=== PATIENT | female | born 1950 ===

== ENCOUNTER 2018-04-12 21:02 | Inpatient (IN) | payer BC, MEDICARE ==
[2018-04-12 21:37] LABS: BASO # 0.03 K/mm3 (0.0-2.0); BASO % 0.4 % (0.0-3.0); EOS # 0.1 (0.0-0.7); EOS % 0.9 % (1.5-5.0); GRAN # 4.38 (1.4-6.5); GRAN % 55.5 % (50.0-68.0); HEMOGLOBIN 12.7 g/dL (12.0-16.0); LYMPH % 37.8 % (22.0-35.0); MEAN CELL VOLUME 89.4 fl (80.0-105.0); MEAN CORPUSCULAR HEMOGLOBIN 30.6 pg (25.0-35.0); MEAN CORPUSCULAR HGB CONC 34.2 g/dl (31.0-37.0); MEAN PLATELET VOLUME 10.7 fl (7.0-11.0); MONO # 0.4 (0.1-0.6); MONO % 5.4 % (1.0-6.0); RBC 4.15 10^6/uL (3.5-6.1); RED CELL DISTRIBUTION WIDTH 12.3 % (11.5-14.5); WHITE BLOOD COUNT 7.9 10^3/ul (4.5-11.0)
[2018-04-12 21:51] LABS: PH,URINE 6.5 (4.7-8.0); URINE BILIRUBIN NEGATIVE (NEGATIVE); URINE BLOOD TRACE-INTACT (NEGATIVE); URINE GLUCOSE (UA) 500 mg/dL (NEGATIVE); URINE LEUKOCYTE ESTERASE SMALL Leu/uL (NEGATIVE); URINE PROTEIN NEGATIVE mg/dL (<30 mg/dL); URINE UROBILINOGEN 0.2 E.U./dL (<1 E.U./dL)
[2018-04-12 21:55] LABS: URINE COLOR YELLOW (YELLOW)
[2018-04-12 21:56] LABS: URINE APPEARANCE CLEAR (CLEAR)
[2018-04-12 22:01] LABS: URINE EPITHELIAL CELLS 0 - 2 /hpf (0-5); URINE RBC 0 - 2 /hpf (0-2); URINE WBC 0 - 2 /hpf (0-6)
[2018-04-12 22:03] LABS: TROPONIN I < 0.01 ng/mL
[2018-04-12] MEDS ORDERED: Sodium Chloride 0.9% 1,000 ML IV STA ×2 (22:07→23:22)
[2018-04-12 22:18] LABS: D DIMER < 200 ng/mL (0-243); INR 0.98 (0.93-1.08); PARTIAL THROMBOPLASTIN TIME 27.5 Seconds (25.1-36.5); PROTHROMBIN TIME 11.2 SECONDS (9.4-12.5)
[2018-04-12 22:20] LABS: ALB/GLOB RATIO 1.3 (1.1-1.8); ALBUMIN 4.7 g/dL (3.0-4.8); ALT/SGPT 24 U/L (7-56); AST/SGOT 28 U/L (14-36); BLOOD UREA NITROGEN 15 mg/dL (7-21); CALCIUM 9.4 mg/dL (8.4-10.5); GFR AFRICAN-AMERICAN > 60; GFR NON-AFRICAN AMERICAN > 60
--- NOTE | 2018-04-13 01:12 | ED PDOC ---
Arrival/HPI - General Chief Complaint: Palpitations Time Seen by Provider: 04/12/18 21:26 Historian: Patient - History of Present Illness Narrative History of Present Illness (Text): 04/12/18 21:25 67 year old female, whose past medical history includes hypertension, who presents to the Emergency department complaining of generalized fatigue and sudden onset of anterior chest pain with palpitations tonight. Patient states pain radiates across her chest to the right arm and describes pain as a pressure sensation with the feeling of palpitations. Patient states pain is associated with some nausea. No medications were taken at home. Patient denies any fever, chills, back pain, abdominal pain, recent trauma, recent travel, brandy pain, or any other complaints. Symptom Onset: Sudden Symptom Course: Unchanged Activities at Onset: Light Context: Home Past Medical History - Provider Review Nursing Documentation Reviewed: Yes - Travel History Have you recently traveled outside [place] w/in the past 3 mons?: No - Cardiac Hx Hypertension: Yes - Psychiatric Hx Substance Use: No - Anesthesia Hx Anesthesia: No Hx Anesthesia Reactions: No Hx Malignant Hyperthermia: No Family/Social History - Physician Review Nursing Documentation Reviewed: Yes Family/Social History: Diabetes (mother with DM), CAD/DC (brother; at age 40). denies: Aortic/Thoracic Disection Smoking Status: Never Smoked Hx Alcohol Use: No Hx Substance Use: No Allergies/Home Meds Allergies/Adverse Reactions: Allergies No Known Allergies Allergy (Unverified 08/02/13 14:58) Home Medications: Home Meds Medication Instructions Recorded Confirmed Amlodipine Besylate/Benazepril 1 cap PO DAILY 04/12/18 04/12/18 [Amlodipine-Benazepril 5-10 mg] Review of Systems - Physician Review All systems were reviewed & negative as marked: Yes - Review of Systems Constitutional: Normal. absent: Fevers Respiratory: Normal. absent: SOB, Cough Cardiovascular: Chest Pain, Palpitations Gastrointestinal: Nausea. absent: Abdominal Pain, Vomiting Genitourinary Female: Normal. absent: Dysuria, Frequency, Hematuria, Urine Output Changes Musculoskeletal: Normal. absent: Back Pain Neurological: Normal. absent: Headache, Dizziness Physical Exam Vital Signs Reviewed: Yes Vital Signs Temp Pulse Resp BP Pulse Ox 04/12/18 23:52 89 14 117/70 99 04/12/18 22:28 103 H 23 139/83 97 04/12/18 21:17 98.5 F 117 H 18 137/89 99 Temperature: Afebrile Blood Pressure: Normal Pulse: Tachycardic Respiratory Rate: Normal Appearance: Positive for: Non-Toxic Pain Distress: None Mental Status: Positive for: Alert and Oriented X 3 Finger Stick Blood Glucose: 282 - Systems Exam Head: Present: Atraumatic, Normocephalic Mouth: Present: Moist Mucous Membranes Neck: Present: Normal Range of Motion Respiratory/Chest: Present: Clear to Auscultation, Good Air Exchange. No: Respiratory Distress, Accessory Muscle Use Cardiovascular: Present: Normal S1, S2, Tachycardic. No: Murmurs, Muffled Abdomen: No: Tenderness, Distention, Peritoneal Signs, Rebound, Guarding Back: Present: Normal Inspection. No: CVA Tenderness Upper Extremity: Present: Normal Inspection. No: Cyanosis, Edema Lower Extremity: Present: Normal Inspection. No: Edema, CALF TENDERNESS Neurological: Present: GCS=15, Speech Normal Skin: Present: Warm, Dry, Normal Color. No: Rashes Psychiatric: Present: Alert, Oriented x 3 Medical Decision Making ED Course and Treatment: 04/12/18 21:25 Impression: 67 year old female presents for chest pain, palpitations, and nausea. Plan: -- EKG: Sinus tachycardia at 117 bpm normal axis no ST elevations -- Chest X-ray: No infiltrate or effusion -- CBC: wnl --CMP: glucose; 318 --trop; wnl --D-dimer negative -- Urinalysis, urine cultures -- IV fluids -- Aspirin -- Reassess and disposition Progress Notes: Patient given 2 L of normal saline IV bolus. Patient feeling better. Heart rate has improved to 98 bpm I discussed the results in depth with the patient. Aspirin 325 mg given by mouth Case discussed with Dr. Rodriguez, who is aware and agrees with plan. She has requested a low dose of regular insulin sliding scale Impression: Chest pain, new onset diabetes Admitted observational status to telemetry Reassessment Condition: Re-examined, Improved - Lab Interpretations Lab Results: 04/12/18 21:15 04/12/18 21:15 Lab Results 04/13/18 00:27: POC Glucose (mg/dL) 282 H 04/12/18 22:01: PT 11.2, INR 0.98, APTT 27.5, D-Dimer, Quantitative < 200 04/12/18 21:40: Urine Color Yellow, Urine Appearance Clear, Urine pH 6.5, Ur Specific Knobel <= 1.005, Urine Protein Negative, Urine Glucose (UA) 500 H, Urine Ketones Negative, Urine Blood Trace-intact H, Urine Nitrate Negative, Urine Bilirubin Negative, Urine Urobilinogen 0.2, Ur Leukocyte Esterase Small H , Urine RBC 0 - 2, Urine WBC 0 - 2, Ur Epithelial Cells 0 - 2 04/12/18 21:15: Sodium 139, Potassium 4.4, Chloride 99, Carbon Dioxide 25, Anion Gap 19, BUN 15, Creatinine 0.6 L, Est GFR ( Amer) > 60, Est GFR ( Non-Af Amer) > 60, Random Glucose 318 H*, Calcium 9.4, Magnesium 2.0, Total Bilirubin 0.3, AST 28, ALT 24, Alkaline Phosphatase 67, Lactate Dehydrogenase 508, Total Creatine Kinase 139, Troponin I < 0.01, Total Protein 8.4 H, Albumin 4.7, Globulin 3.6, Albumin/Globulin Ratio 1.3 04/12/18 21:15: WBC 7.9, RBC 4.15, Hgb 12.7, Hct 37.1, MCV 89.4, MCH 30.6, MCHC 34.2, RDW 12.3, Plt Count 268, MPV 10.7, Gran % 55.5, Lymph % (Auto) 37.8 H, Trigg % (Auto) 5.4, Eos % (Auto) 0.9 L, Baso % (Auto) 0.4, Gran # 4.38, Lymph # ( Auto) 3.0, Trigg # (Auto) 0.4, Eos # (Auto) 0.1, Baso # (Auto) 0.03 I have reviewed the lab results: Yes - RAD Interpretation Radiology Orders: 04/12/18 21:27 CHEST PORTABLE [RAD] Stat - EKG Interpretation Interpreted by ED Physician: Yes Type: 12 lead EKG - Medication Orders Current Medication Orders: Insulin Human Regular (Humulin R Low) 0 units SC ACHS GUERO PRN Reason: Protocol Discontinued Medications Aspirin (Aspirin) 325 mg PO STAT STA Stop: 04/13/18 00:42 Last Admin: 04/13/18 00:51 Dose: 325 mg Aspirin (Aspirin) 325 mg PO STAT STA Stop: 04/13/18 00:46 Last Admin: 04/13/18 00:52 Dose: Sodium Chloride (Sodium Chloride 0.9%) 1,000 mls @ 999 mls/hr IV .Q1H1M STA Stop: 04/12/18 23:07 Last Admin: 04/12/18 22:11 Dose: 999 mls/hr eMAR Start Stop Document 04/12/18 22:11 CNR (Rec: 04/12/18 22:11 CNR [id number]) Intravenous Solution Start Date 04/12/18 Start Time 22:11 Sodium Chloride (Sodium Chloride 0.9%) 1,000 mls @ 999 mls/hr IV .Q1H1M STA Stop: 04/13/18 00:22 Last Admin: 04/12/18 23:26 Dose: 999 mls/hr eMAR Start Stop Document 04/12/18 23:26 CNR (Rec: 04/12/18 23:26 CNR [id number]) Intravenous Solution Start Date 04/12/18 Start Time 23:26 - Scribe Statement The provider has reviewed the documentation as recorded by the Megan Doan Provider Scribe Attestation: All medical record entries made by the Scribdonna were at my direction and personally dictated by me. I have reviewed the chart and agree that the record accurately reflects my personal performance of the history, physical exam, medical decision making, and the department course for this patient. I have also personally directed, reviewed, and agree with the discharge instructions and disposition. Disposition/Present on Arrival - Present on Arrival Any Indicators Present on Arrival: No History of DVT/PE: No History of Uncontrolled Diabetes: No Urinary Catheter: No History of Decub. Ulcer: No History Surgical Site Infection Following: None - Disposition Have Diagnosis and Disposition been Completed?: Yes Diagnosis: Chest pain, Hyperglycemia Disposition: HOSPITALIZED Disposition Time: 01:15 Patient Plan: Observation Condition: FAIR
[2018-04-13] MEDS: Insulin Reg-LOW-Coverage SC SCH ×4 (08:26→22:29)
--- NOTE | 2018-04-13 09:16 | CARD ---
APPROVED REPORT EKG Measurement Heart [id number] <Conclusion> Sinus tachycardia Mild NSSTW changes
[2018-04-13 10:07] LABS: HDL CHOLESTEROL 54 mg/dL (29-60)
[2018-04-13 10:17] LABS: LDL CHOLESTEROL 149 mg/dL (0-129)
--- NOTE | 2018-04-13 12:04 | RAD ---
HISTORY: cp COMPARISON: No prior. FINDINGS: LUNGS: No active pulmonary disease. PLEURA: No significant pleural effusion identified, no pneumothorax apparent. CARDIOVASCULAR: Normal. OSSEOUS STRUCTURES: No significant abnormalities. VISUALIZED UPPER ABDOMEN: Normal. OTHER FINDINGS: None. IMPRESSION: No active disease.
[2018-04-14] MEDS: Insulin Reg-LOW-Coverage SC SCH ×4 (07:40→22:50)
--- NOTE | 2018-04-14 17:57 | PN ---
DATE: 04/14/2018 SUBJECTIVE: This 67-year-old female remains hospitalized on the Cardiac Unit. She was admitted with chest pain, shortness of breath and radiation of discomfort in her chest across her chest wall to her right shoulder. She is currently in a normal sinus rhythm on the shelter monitor and she was also admitted with uncontrolled diabetes mellitus. Today's lab testing shows hyperlipidemia with total cholesterol 243, LDL 149 and triglycerides 234. She was started on metformin yesterday with insulin coverage and her hemoglobin A1c is indeed high at 10.6. PHYSICAL EXAMINATION: VITAL SIGNS: Presently, her temperature is 98.5, respirations 18, pulse 75 and blood pressure 140/75, previously 120/60. HEENT: Head: Normocephalic, atraumatic. Eyes: No icterus. Ears: Clear. Throat: Noninjected. NECK: Supple. HEART: Regular S1, S2. LUNGS: Clear. ABDOMEN: Soft. EXTREMITIES: No edema. SKIN: Without rash. NEUROLOGICAL: Intact. PSYCHOLOGICAL: Alert. VASCULAR: Legs warm to touch. LABORATORY DATA: Initial sugar 318, before lunch 213. Hemoglobin A1c 10.6. Cholesterol 243, triglycerides 234, LDL 149, HDL 54. All liver function testing was normal. White count 7900, hemoglobin 12.7, hematocrit 37.1, platelets 268,000. PT/INR 0.98, PTT 27.5. Urinalysis showed no protein. Chest x-ray was reviewed, it shows no active disease. No infiltrate, no CHF, no effusion. EKG shows normal sinus rhythm with nonspecific ST-T wave changes. Echocardiogram has been ordered and is pending. IMPRESSION: A 67-year-old female with chest pain, rule out unstable angina, newly noted uncontrolled diabetes mellitus, hypertension, hyperlipidemia. PLAN: The plan as outlined with the patient and nurse will be to increase Zestril to 5 mg p.o. daily while continuing clonidine 0.1 mg p.o. every 4 hours p.r.n. accelerated hypertension if systolic blood pressure should be greater than 160 or diastolic blood pressure should be greater than 100. She continues on Glucophage 500 mg p.o. b.i.d. and regular Humulin low-dose protocol before meals and at bedtime. She is ordered to have sublingual nitroglycerin 0.4 mg p.r.n. chest pain, Tylenol 650 p.o. every 6 hours p.r.n. pain or temperature greater than 101 and Zofran 4 mg IV every 6 hours p.r.n. nausea and vomiting. She has been ordered to start Lipitor 20 mg p.o. at dinnertime. Continues on a heart-healthy diet. She is receiving diabetic education and also will be scheduled for a Lexiscan stress test Monday. Greater than 35 minutes was spent in the care and management, review of labs, orders, x-rays and outlining of medication and discussion of hypertension and diabetic management with the patient at bedside. All questions were answered. Angela Rodriguez MD MTDD
--- NOTE | 2018-04-15 00:37 | HP ---
DATE OF EXAM: 04/13/2018 HISTORY OF PRESENT ILLNESS: This 67-year-old female was examined at her bedside. This case was reviewed in detail with herself and her cardiac nurse. The patient presented to the [facility] ER complaining of generalized fatigue and anterior chest wall discomfort with palpitations and discomfort radiating across her chest to the right arm with a pressure sensation along with the feeling of palpitation. The patient admitted to nausea, no vomiting, no diaphoresis, and is admitted for concerns of unstable angina. She does have a past medical history of chronic hypertension. The patient is a nondrinker, nonsmoker, non-IV-drug misuser. FAMILY HISTORY: Strong for coronary artery disease in that her mother has both diabetes and atherosclerotic heart disease. Her brother at age 40 of coronary artery disease and the myocardial infarction. ALLERGIES: PATIENT DENIED ANY ALLERGIES TO MEDICATION. MEDICATIONS: States she takes amlodipine/benazepril 5/10 mg p.o. daily. REVIEW OF SYSTEMS: CONSTITUTIONAL: She denied fever or chills. HEAD: Denied headache or seizure. EYE: There was no change in visual acuity. EAR: No hearing loss. THROAT: No swallowing difficulty. NECK: No stiffness. CARDIAC: As per HPI. PULMONARY: No cough. No hemoptysis. GI: No dyspepsia. : No dysuria. SKIN: Without rash. NEUROLOGICAL: No seizure. PSYCHOLOGICAL: Denied depression. VASCULAR: No claudication. NEUROLOGICAL: No knowledge of stroke. PHYSICAL EXAMINATION: VITAL SIGNS: She was in a normal sinus rhythm on the bus driver/monitor and her temperature showed 97.7, respirations 17, pulse 98, and blood pressure 156/75. HEENT: Head: Normocephalic, atraumatic. Eyes: No icterus. Ears: Clear. Throat: Noninjected. NECK: Supple. HEART: Regular S1, S2. LUNGS: Clear. ABDOMEN: Soft. EXTREMITIES: No edema. SKIN: Without rash. NEUROLOGICAL: Intact. PSYCHOLOGICAL: Alert. VASCULAR: Legs warm to touch. LABORATORY DATA: White count 7900, hemoglobin 12.7, hematocrit 37.1, platelets 268,000. PT/INR was 0.98, PTT 27.5, D-dimer less than 200. Sodium 139, K 4.4, chloride 99, bicarb 25, BUN 15, creatinine 0.6. Her initial blood sugar 318, calcium 9.4, magnesium 2. Bilirubin 0.3, AST 28, ALT 24, alk phos 67. CPK normal 139. Troponin less than 0.01. Urinalysis showed no protein. EKG was reviewed. It showed sinus tachycardia with nonspecific ST-T wave changes. Her chest x-ray was reviewed. It showed no active pulmonary disease. There was no evidence of infiltrate, congestive heart failure, pleural effusion, or pneumothorax. IMPRESSION: This is a 67-year-old female with new-onset diabetes mellitus, chest discomfort, rule out unstable angina, rule out atypical chest pain, also with newly noted hypertension, rule out anxiety related. PLAN: The plan as discussed with the patient will be to admit her to the cardiac unit. She has been placed on a heart-healthy diet. She will be started on Zestril 2.5 mg p.o. daily, Zofran 4 mg IV every 6 hours p.r.n. nausea or vomiting, Tylenol 650 mg p.o. every 6 hours p.r.n. pain or temperature greater than 101. I have ordered nitroglycerin 0.4 mg sublingual p.r.n. chest pain. She is ordered to have regular Humulin insulin before meals and at bedtime protocol with metformin started at 500 mg p.o. b.i.d. and clonidine 0.1 mg p.o. every 4 hours p.r.n. accelerated hypertension. She was given Ecotrin 325 mg p.o. in the emergency room and is ordered to have a 2-D echocardiogram with scheduling of a stress thallium test within the next 48 hours. Greater than 75 minutes was spent in the care management, review of labs, orders, and x-rays and discussion of this patient's case with herself and nurse, Alex Marcelo, registered nurse. All questions were answered. Angela Rodriguez MD MTDLena
[2018-04-15] MEDS: Insulin Reg-LOW-Coverage SC SCH ×4 (08:00→22:22)
--- NOTE | 2018-04-15 08:12 | CARD ---
APPROVED REPORT EXAM: Two-dimensional and M-mode echocardiogram with Doppler and color Doppler. Other Information Quality : FairRhythm : INDICATION Chest Pain , Palpitations 2D DIMENSIONS Left Atrium (2D)3.1 (1.6-4.0cm)IVSd1.0 (0.7-1.1cm) LVDd4.4 (3.9-5.9cm)PWd1.0 (0.7-1.1cm) LVDs3.1 (2.5-4.0cm)FS (%) 29.1 % LVEF (%)56.0 (>50%) M-Mode DIMENSIONS Aortic Root3.00 (2.2-3.7cm)Aortic Cusp Exc.1.80 (1.5-2.0cm) Aortic Valve AoV Peak Vskvvyoj43.6cm/s Mitral Valve MV E Plseqhjc98.3cm/sMV A Hvslemde69.2cm/sE/A ratio0.9 TDI Lateral E' Peak V7.41cm/sMedial E' Peak V4.97cm/sE/Lateral E'7.2 E/Medial E'10.7 Tricuspid Valve TR Peak Lxckqabt377yv/sRAP [id number] Peak Gr.21mmHg [id number] LEFT VENTRICLE The left ventricle is normal size. There is normal left ventricular wall thickness. The left ventricular function is normal. The left ventricular ejection fraction is within the normal range. There is normal LV segmental wall motion. RIGHT VENTRICLE The right ventricle is normal size. ATRIA The left atrium size is normal. The right atrium size is normal. The interatrial septum is intact with no evidence for an atrial septal defect. AORTIC VALVE The aortic valve is normal in structure. MITRAL VALVE The mitral valve is normal in structure. Mitral regurgitation is trace. TRICUSPID VALVE The tricuspid valve is normal in structure. There is trace tricuspid regurgitation. PULMONIC VALVE The pulmonic valve is not well visualized. GREAT VESSELS The aortic root is normal in size. PERICARDIAL EFFUSION There is no pericardial effusion. <Conclusion> The left ventricle is normal size. There is normal left ventricular wall thickness. The left ventricular function is normal.
--- NOTE | 2018-04-15 14:19 | PN ---
DATE: 04/15/2018 SUBJECTIVE: This 67-year-old female was examined at her bedside and this case was reviewed in detail with herself and her nurse, Yelitza. The patient was admitted with chest pain, uncontrolled type 2 diabetes mellitus and hypertension. The patient was on no diabetic management prior to this admission and is currently receiving metformin and insulin coverage. As discussed with the patient and her nurse, she will need diabetic nursing education regarding the proper way to check her blood sugar with an Accu-Chek monitor before meals and to also use regular Humulin low-dose insulin protocol before meals and at bedtime. At present, she is chest pain free and awaiting her Lexiscan stress test. PHYSICAL EXAMINATION: VITAL SIGNS: Temperature was 98.1, respirations 18, pulse 78 and blood pressure 123/78 with a pulse ox of 100%. She is in a normal sinus rhythm on the cardiac sonographer. HEENT: Head: Normocephalic, atraumatic. Eyes: No icterus. Ears: Clear. Throat: Noninjected. NECK: Supple. HEART: Regular S1, S2. No pathological rubs, murmurs or gallops. LUNGS: Clear. ABDOMEN: Soft. EXTREMITIES: No edema. SKIN: Without rash. NEUROLOGICAL: Intact. PSYCHOLOGICAL: Alert. VASCULAR: Legs warm to touch. LABORATORY DATA: Hemoglobin A1c 10.6, high; cholesterol 243, high; triglycerides 234, high; LDL 149, high and HDL 54. This morning's blood sugar was 187 before breakfast and it was 171 last evening before bedtime. White count 7900, hemoglobin 12.7, hematocrit 37.1, platelets are 268,000. IMPRESSION: A 67-year-old female with uncontrolled type 2 diabetes mellitus, hypertension, hyperlipidemia, admitted with chest pain, rule out unstable angina. The patient's echocardiogram was reviewed that was completed yesterday. It shows her left ventricle is normal in size, wall thickness and motion. There were no significant valvular murmurs or pathology noted. PLAN: The plan is to await the Lexiscan stress test in the a.m. She will continue on Ecotrin 81 mg daily. Her metformin will be increased to 1000 mg p.o. b.i.d. She will be trained on the use of regular Humulin insulin before meals and at bedtime low protocol, Lipitor 20 mg at dinner time, nitroglycerin 0.4 mg sublingual p.r.n. chest pain and she continues on Zestril 5 mg p.o. daily. The patient was instructed she will need close outpatient monitoring of all of the above with the physician in her Medicare Advantage Plan. Greater than 35 minutes was spent in the care and management, review of labs, orders, x-rays and outlining of medication and testing for this patient today. All questions were answered. Angela Rodriguez MD MTDD
[2018-04-16 05:59] VITALS: RESP 20
[2018-04-16] MEDS: Insulin Reg-LOW-Coverage SC SCH ×4 (08:16→22:08)
[2018-04-16] MEDS ORDERED: Aminophylline 25 mg/ml Inj ONE (08:50)
--- NOTE | 2018-04-16 11:36 | PN ---
DATE: 04/16/2018 SUBJECTIVE: This 67-year-old female remains hospitalized on the cardiac raygoza. She was admitted with chest pain, uncontrolled insulin-dependent diabetes mellitus, hypertension and hyperlipidemia. The patient is being instructed into the use of a diabetic test monitor and is being instructed on the use of Humulin R low-dose insulin protocol coverage and has had her Glucophage increased because of uncontrolled insulin-dependent diabetes mellitus. The patient is awaiting a Lexiscan stress test for completeness sake given her presentation of chest pain and her comorbid conditions. PHYSICAL EXAMINATION: VITAL SIGNS: On physical exam at the present time, she is in a normal sinus rhythm on the laboratory monitor with a temperature of 97.9, respirations 20, pulse 79 and blood pressure 122/81 and pulse ox 99% on room air. HEENT: Head normocephalic, atraumatic. Eyes: No icterus. Ears: Clear. Throat: Noninjected. NECK: Supple. HEART: Regular S1, S2. LUNGS: Clear. ABDOMEN: Soft. EXTREMITIES: No edema. SKIN: Without rash. NEUROLOGICAL: Intact. PSYCHOLOGICAL: Alert. VASCULAR: Legs warm to touch. LABORATORY DATA: White count 7900, hemoglobin 12.7, hematocrit 37.1, platelets 268,000. Random blood sugar 160 prior to breakfast today and she was 204 prior to lunch yesterday. Hemoglobin A1c 10.6. Cholesterol 243, triglycerides 234, LDL 149, HDL 54. Sodium 139, K 4.4, chloride 99, bicarb 25, BUN 15, creatinine 0.6. CPK 139. Troponin less than 0.01. IMPRESSION: A 67-year-old female admitted with chest pain in the setting of comorbid conditions of hypertension, hyperlipidemia and uncontrolled insulin-dependent diabetes mellitus. PLAN: The plan at present is to proceed with Lexiscan stress test. I did review her 2-D echocardiogram. It shows no significant valvular pathology and her left ventricular ejection fraction is normal at this time. She will continue on clonidine 0.1 mg p.o. every 4 hours p.r.n. accelerated hypertension if systolic blood pressure is greater than 160 or diastolic blood pressure is greater than 100. She continues on Ecotrin 81 mg p.o. daily, Glucophage 1000 mg p.o. b.i.d., regular insulin protocol before meals and at bedtime low dose, Lipitor 20 mg p.o. daily, nitroglycerin 0.4 mg sublingual p.r.n. chest pain, Zestril 5 mg p.o. daily, Tylenol 650 p.o. every 6 hours p.r.n. pain or temperature greater than 101 and Zofran 4 mg IV every 6 hours p.r.n. nausea and vomiting. She continues on a heart-healthy, low-cholesterol diet and based on the results of her myocardial stress test, additional diagnostic workup will be entertained. Greater than 35 minutes was spent in the care and management, review of labs, orders, x-rays and outlining of care with her nurse today. I have asked nursing to make sure that she is familiar with the use of a Glucometer and insulin and I have asked her to have a diabetic nursing education consultation as well. Angela Rodriguez MD MTDD
--- NOTE | 2018-04-16 21:37 | CARD ---
APPROVED REPORT Protocol: LEXISCAN Test Type: Lexiscan Sestamibi Stress Test Attending Physician: Dr. Naga Nicole Referring Physician: Dr. Angela Rodriguez Test Indications: Chest Pain Height:5 ft 0 in Weight:114lbs Medications: Aspirin, Lipitor, Catapres, Zestril, Glucophage Medical History: 67 y/o diabetic woman with chest pain and multiple cardiac risk factors. Target HR: 155 bpm Resting ECG: RSR Resting Heart Rate: 75 bpm Resting Blood Pressure: 104/70mmHg Submaximum (85%): 132 bpm PROCEDURE Pharmacologic stress testing was performed using 0.4mg per 5ml of regadenoson given intravenously over 7-10 seconds. POST EXERCISE Reason for Termination: Protocol completed Target HR: No Max HR: 109 bpm 90% of Maximum Predicted HR: 155 bpm Exercise duration: 05:10 min:sec, 0 Stage Exercise capacity: 1.0METs Max Blood Pressure: 110/64mmHg Blood Pressure response to exercise: Normal Heart Rate response to exercise: Normal Chest Pain: No, None Angina index: 0 Arrhythmia: No, None ST Change: No, None Deviation: 0 mm INTERPRETATION Stress EKG Conclusion: Lexiscan nuclear stress test which is negative for chest pain, ischemia and arrhythmia. Nuclear scans pending. Signed by Naga Nicole Electronically Approved: 04/16/2018 12:14:28 EXAM: Myocardial Perfusion REST/STRESS Stress Test Type: Pharmacologic Imaging Protocol Rest Spect myocardial perfusion imaging was performed in supine position 45 minutes following the injection of 10.3 mCi of Tc-99 Myoview. At peak stress, the patient was injected intravenously with 30.5mCi of Tc-99 tetrofosmin after an infusion time of 0 minutes and 10 seconds. Gated Stress Spect was performed 65 minutes after intravenous Tc-99 Myoview injection. The images were gated to evaluate regional wall motion and calculate ventricular ejection fraction.Images were reconstructed using backfilter projection method in short horizontal and verticle long axis. Spect slices were generated. LV Perfusion The quality of the study is good. The left ventricle is normal in size. The right ventricle is unremarkable. The lung uptake is normal. The distribution of tracer reveals mildly decreased perfusion involving apical wall on the stress study. The remainder of the LV myocardium is unremarkable. The rest myocardial perfusion study shows no significant change. Wall Motion Wall motion study shows good contractility of the left ventricle except for paradoxical septal wall motion. LVEF = 53%. Conclusion 1. Essentially normal SPECT myocardial perfusion study. 2. Fixed, apical defect is most likely due to breast attenuation. 3. Normal gated wall motion of the left ventricle.
[2018-04-17 06:36] VITALS: O2SAT 98
[2018-04-17] MEDS: Insulin Reg-LOW-Coverage SC SCH ×2 (08:12→12:18)
[2018-04-17 11:25] VITALS: BP 136/89; PULSE 82; TEMP 98
--- NOTE | 2018-04-17 13:20 | DS ---
DATE OF EXAM: 04/17/2018 FINAL DIAGNOSES: Chest pain, resolved; hypertension; type 2 diabetes mellitus; hyperlipidemia. DISPOSITION: Home. The patient to follow up with her primary care physician in her Medicare managed health plan within the next 48 hours with prescriptions for Ecotrin 81 mg p.o. daily, Glucophage 1000 mg p.o. b.i.d., Humulin R low-dose insulin coverage protocol before meals and at bedtime, Lipitor 20 mg p.o. at dinner time, Zestril 5 mg p.o. daily. The patient was instructed on a heart-healthy diet and received diabetic education by nurse, Nory Cortés and her cardiac unit nursing staff. SUMMARY: This 67-year-old female was admitted to [facility] with chest pain, uncontrolled hypertension, hyperlipidemia and type 2 diabetes mellitus. She ruled out for myocardial infarction and completed a 2-D echocardiogram that showed no valvular pathology and a normal left ventricular ejection fraction. She did complete a myocardial stress test which on the date of discharge revealed a normal SPECT myocardial perfusion study with fixed apical defect most likely due to breast attenuation and normal gated wall motion of her left ventricle. At the time of discharge, vital signs were temperature 97.7, respirations 20, pulse 82 and blood pressure 117/76 with a pulse ox of 98% room air. Discharge labs show white count 7900, hemoglobin 12.7, hematocrit 37.1, platelets 268,000. Her blood sugars are currently running between 143 and 181 and the patient was noted to have a hemoglobin A1c on admission of 10.6 with a cholesterol of 243, triglycerides 234, LDL 149 and HDL 54. Sodium 139, K 4.4, chloride 99, bicarb 25, BUN 15, creatinine 0.6, calcium 9.4, magnesium 2, bilirubin 0.3, AST 28, ALT 24 and alk phos 67. The patient is discharged to home. She has been advised to follow up with PMD regarding ongoing management of the above issues. I have given the patient copies of her echocardiography and Lexiscan stress test for her physician's review and records and patient was advised for any change in signs and symptoms to present directly to the emergency room. Greater than 35 minutes was spent in the care management, review of discharge instructions and outlining of prescription and instructions for this patient today. All questions were answered. Angela Rodriguez MD [facility] # [id number]
== END 2018-04-17 15:29 | disposition home or self-care (01) | DRG 313 ==
LOC: ED 21:02 → ERH 04-13 00:45 → 2RNO 04-13 01:24 → OBSVTOIN 04-14 16:05
PROVIDERS: ADMIT Internal Medicine; ATTEND Internal Medicine
DX: R07.9 Chest pain, unspecified (principal); E11.65 Type 2 diabetes mellitus with hyperglycemia; E78.5 Hyperlipidemia, unspecified; I10 Essential (primary) hypertension; Z79.4 Long term (current) use of insulin; Z82.49 Family history of ischemic heart disease and other diseases of the circulatory system; Z83.3 Family history of diabetes mellitus